=== PATIENT | male | born 1995 | race Two or more races ===

== ENCOUNTER 2018-08-07 15:18 | Emergency (ER) | payer SELFPAY ==
[~2018-08-07] VITALS: Ht 170.2 cm; Wt 79.0 kg
[2018-08-07 19:22] LABS: CLARITY URINE CLEAR (CLEAR); COLOR URINE YELLOW (YELLOW); KETONES URINE NEGATIVE (NEGATIVE); LEUKOCYTE ESTERASE URINE NEGATIVE (NEGATIVE); NITRITE URINE NEGATIVE (NEGATIVE); OCCULT BLOOD URINE NEGATIVE (NEGATIVE); PROTEIN URINE NEGATIVE (NEGATIVE); SPECIFIC GRAVITY URINE 1.005 (1.005-1.030); UROBILINOGEN URINE 0.2 E.U./dL (0.2-1.0)
[2018-08-07 21:14] VITALS: BP 153/91
[2018-08-10 04:11] LABS: CHLAMYDIA TRACHOMATIS NAA Negative (Negative); NEISSERIA GONORRHOEAE NAA Negative (Negative)
== END 2018-08-07 21:15 | disposition home or self-care (01) ==
LOC: ER 15:18
DX: N50.819 Testicular pain, unspecified (principal); N41.9 Inflammatory disease of prostate, unspecified
CPT/HCPCS: 76870; 87491; 87591; 93976; 99284